=== PATIENT | female | born 1985 | race Caucasian/White ===

== ENCOUNTER 2017-11-30 02:23 | Emergency (ER) | payer OTHER, MEDICAID ==
[~2017-11-30] VITALS: Ht 170.2 cm; Wt 81.8 kg
[~2017-11-30 02:23] MED LIST: AMOXICILLIN 50500 MG PO; AMOXICILLIN 8751 TAB PO; CEPHALEXIN500 M1 PO; CLEOCIN HCL300 MG PO; CLINDAMYCIN150 MG PO; EQUALINE PRENATAL; FLEXERIL 1010 MG/TAB PO; FLEXERIL5 MG PO; IBU800 M1 PO; MACROBID 1100 MG/CAP PO; MOTRIN 800800 MG/TAB PO; NAPROSYN500 MG PO; NORCO 325 MG-51 TAB; NORCO 325 MG-51 TAB PO; NORCO 325 MG-7.1 TAB PO; PEN-VEE K500 MG PO; PERCOCET 325 MG1 TA2 PO; PHENERGAN 25 TA25 MG PO; PRENATAL1 TA7 PO; ULTRAM 50MG TAB50 MG PO; ZANTAC 7575 MG PO
[2017-11-30 02:33] VITALS: BP 162/107; TEMP 98.1
[2017-11-30 04:10] VITALS: PULSE 61
== END 2017-11-30 04:08 | disposition home or self-care (01) ==
LOC: COL.ER 02:23
DX: S90.111A Contusion of right great toe without damage to nail, initial encounter (principal); Z90.49 Acquired absence of other specified parts of digestive tract; Z98.890 Other specified postprocedural states; Z87.891 Personal history of nicotine dependence; W20.8XXA Other cause of strike by thrown, projected or falling object, initial encounter; Y92.009 Unspecified place in unspecified non-institutional (private) residence as the place of occurrence of the external cause

== ENCOUNTER 2017-12-20 23:41 | Emergency (ER) | payer OTHER, MEDICAID ==
[~2017-12-20] VITALS: Ht 170.2 cm; Wt 81.8 kg
[2017-12-20 23:48] VITALS: BP 163/99; TEMP 98
[2017-12-21] MEDS ORDERED: FLEXERIL 1010 MG/TAB PO (00:53)
[2017-12-21 01:08] VITALS: PULSE 70
== END 2017-12-21 01:08 | disposition home or self-care (01) ==
LOC: COL.ER 23:41
DX: S50.02XA Contusion of left elbow, initial encounter (principal); S46.912A Strain of unspecified muscle, fascia and tendon at shoulder and upper arm level, left arm, initial encounter; Z87.891 Personal history of nicotine dependence; W10.9XXA Fall (on) (from) unspecified stairs and steps, initial encounter; Y92.009 Unspecified place in unspecified non-institutional (private) residence as the place of occurrence of the external cause

== ENCOUNTER 2017-12-30 21:41 | Emergency (ER) | payer OTHER, MEDICAID ==
[~2017-12-30] VITALS: Ht 170.2 cm; Wt 81.8 kg
[2017-12-30 21:48] VITALS: BP 137/95; TEMP 98.6
[2017-12-30] MEDS ORDERED: NORCO 325 MG-51 TAB PO (23:25)
[2017-12-30 23:30] VITALS: PULSE 84
== END 2017-12-30 23:30 | disposition home or self-care (01) ==
LOC: COL.ER 21:41
DX: S29.012A Strain of muscle and tendon of back wall of thorax, initial encounter (principal); Z90.49 Acquired absence of other specified parts of digestive tract; Z87.891 Personal history of nicotine dependence; Z98.890 Other specified postprocedural states; W10.9XXA Fall (on) (from) unspecified stairs and steps, initial encounter

== ENCOUNTER 2018-03-29 18:37 | Emergency (ER) | payer OTHER, MEDICAID ==
[~2018-03-29] VITALS: Ht 170.2 cm; Wt 68.2 kg
[~2018-03-29 18:37] MED LIST changes: +PREDNISONE20 MG PO
[2018-03-29 18:45] VITALS: BP 148/96; PULSE 85; TEMP 98.2
== END 2018-03-29 19:52 | disposition home or self-care (01) ==
LOC: COL.ER 18:37
DX: M75.22 Bicipital tendinitis, left shoulder (principal)
CPT/HCPCS: J1885

== ENCOUNTER 2018-08-24 23:39 | Emergency (ER) | payer OTHER, MEDICAID ==
[~2018-08-24] VITALS: Ht 170.2 cm; Wt 84.1 kg
[2018-08-24 23:45] VITALS: BP 152/102; TEMP 98.3
[2018-08-25 01:06] VITALS: PULSE 76
== END 2018-08-25 01:06 | disposition home or self-care (01) ==
LOC: COL.ER 23:39
DX: S00.83XA Contusion of other part of head, initial encounter (principal); Z87.891 Personal history of nicotine dependence; W51.XXXA Accidental striking against or bumped into by another person, initial encounter

== ENCOUNTER 2018-09-22 21:28 | Emergency (ER) | payer OTHER ==
[~2018-09-22] VITALS: Ht 170.2 cm; Wt 84.1 kg
[2018-09-22 21:41] VITALS: BP 165/105; PULSE 93; TEMP 98.4
== END 2018-09-22 22:34 | disposition left against medical advice (07) ==
LOC: COL.ER 21:28
DX: J02.9 Acute pharyngitis, unspecified (principal)

== ENCOUNTER 2018-09-24 21:51 | Emergency (ER) | payer OTHER ==
[~2018-09-24] VITALS: Ht 170.2 cm; Wt 83.6 kg
[2018-09-24 21:55] VITALS: TEMP 98.1
[2018-09-24] MEDS ORDERED: AMOXICILLIN875 MG PO (21:59)
[2018-09-24 22:22] LABS: STREP SCREEN NEGATIVE
[2018-09-24 22:50] VITALS: BP 137/103; PULSE 76
== END 2018-09-24 22:50 | disposition home or self-care (01) ==
LOC: COL.ER 21:51
PROVIDERS: Physician Assistant
DX: J02.9 Acute pharyngitis, unspecified (principal)
CPT/HCPCS: J1100

== ENCOUNTER 2020-09-12 14:07 | Emergency (ER) | payer OTHER ==
[~2020-09-12] VITALS: Ht 170.2 cm; Wt 72.7 kg
[~2020-09-12 14:07] MED LIST changes: +AMOXICILLIN875 MG PO
[2020-09-12 14:15] VITALS: TEMP 98.5
[2020-09-12] MEDS ORDERED: FLEXERIL5 MG PO (15:20)
[2020-09-12 15:30] VITALS: BP 162/118; PULSE 69
== END 2020-09-12 15:25 | disposition home or self-care (01) ==
LOC: COL.ER 14:07
DX: M54.6 Pain in thoracic spine (principal); Z87.891 Personal history of nicotine dependence; Z88.5 Allergy status to narcotic agent
CPT/HCPCS: J1885

== ENCOUNTER 2021-02-12 17:41 | Emergency (ER) | payer OTHER ==
[~2021-02-12] VITALS: Ht 170.2 cm; Wt 75.5 kg
[2021-02-12] MEDS ORDERED: TESSALON PERLE200 MG PO (20:56)
[2021-02-12 21:12] VITALS: BP 155/93; PULSE 91; TEMP 98.4
== END 2021-02-12 21:12 | disposition home or self-care (01) ==
LOC: COL.ER 17:41
DX: B34.9 Viral infection, unspecified (principal); Z20.822 Contact with and (suspected) exposure to COVID-19

== ENCOUNTER 2021-11-29 20:10 | Emergency (ER) | payer OTHER ==
[~2021-11-29] VITALS: Ht 170.2 cm; Wt 71.2 kg
[~2021-11-29 20:10] MED LIST changes: +TESSALON PERLE200 MG PO
[2021-11-29 21:32] LABS: COLLECTION METHOD CLEAN CATCH
[2021-11-29 21:41] LABS: PH 6 (5-8); SQUAMOUS EPITHELIAL 0-2 /hpf (0-10); URINE APPEARANCE Clear (CLEAR/HAZY); URINE BACTERIA Rare /hpf (NONE SEEN); URINE BLOOD Negative (NEGATIVE); URINE COLOR Straw (YELLOW); URINE GLUCOSE Negative (NEGATIVE); URINE KETONE Negative (NEGATIVE); URINE NITRATE Negative (NEGATIVE); URINE PROTEIN(semi-quant) Negative (NEGATIVE); URINE RBC 0-2 /hpf (0-2); URINE UROBILINOGEN Negative (NEGATIVE)
[2021-11-29] MEDS ORDERED: NORCO 325 MG-51 TAB PO (22:38)
[2021-11-29 22:50] VITALS: BP 132/95; PULSE 74; TEMP 98.9
== END 2021-11-29 22:56 | disposition home or self-care (01) ==
LOC: COL.ER 20:10
PROVIDERS: Physician Assistant
DX: R51.9 Headache, unspecified (principal); Z28.310 Unvaccinated for COVID-19

== ENCOUNTER 2021-12-01 06:52 | Emergency (ER) | payer OTHER ==
[~2021-12-01] VITALS: Ht 170.2 cm; Wt 71.2 kg
[2021-12-01 07:04] VITALS: TEMP 97.6
[2021-12-01 08:21] LABS: BASO # 0.1 K/mm3 (0.0-0.2); BASO % 0.6 % (0.0-2.0); EOS # 0.1 K/mm3 (0.0-0.7); EOS % 0.6 % (0.0-4.0); GRAN # 4.8 K/mm3 (1.4-6.5); HEMOGLOBIN 12.7 g/dl (12.5-16.0); LYMPH # 2.6 K/mm3 (1.2-3.4); LYMPH % 32.6 % (20.0-51.0); MEAN CELL VOLUME 86 fl (80.0-100.0); MEAN CORPUSCULAR HEMOGLOBIN 30 pg (27-31); MEAN CORPUSCULAR HGB CONC 35 g/dl (33.0-37.0); MEAN PLATELET VOLUME 9.9 fl (7.4-10.4); MONO # 0.4 K/mm3 (0.1-0.6); MONO % 4.9 % (1.7-9.3); PLATELET COUNT 368 K/mm3 (130-400); RED BLOOD COUNT 4.29 M/mm3 (4.10-5.30); REDCELL DISTRIBUTION WIDTH-CV 12.9 % (11.5-14.5)
[2021-12-01 08:31] LABS: HEMATOCRIT 36.8 % (37.0-47.0)
[2021-12-01 08:36] LABS: ALANINE AMINOTRANSFERASE 9 U/L (0-55); ALBUMIN 4.6 gm/dL (3.5-5.0); ALKALINE PHOSPHATASE 62 U/L (40-150); ANION GAP 13 mmol/L (7-16); AST,SGOT 9 U/L (5-34); BILIRUBIN,TOTAL 0.5 mg/dL (0.2-1.2); BLOOD UREA NITROGEN 8 mg/dL (7-19); CALCIUM 9.9 mg/dL (8.4-10.2); CARBON DIOXIDE 22 mmol/L (22-29); CHLORIDE 107 mmol/L (98-107); CREATININE, serum 0.72 mg/dL (0.57-1.11); GLUCOSE 109 mg/dL (70-99); LIPASE 27 U/L (8-78); POTASSIUM 3.2 mmol/L (3.5-4.5); SODIUM 142 mmol/L (136-145); TOTAL PROTEIN 7.8 gm/dL (6.2-8.1)
[2021-12-01 08:44] LABS: TROPONIN-I < 0.010 ng/mL (0.00-0.033)
[2021-12-01 10:22] VITALS: BP 140/92; PULSE 63
[2021-12-01] MEDS ORDERED: ATIVAN 1MG T1 MG/TAB PO (10:33)
== END 2021-12-01 10:53 | disposition home or self-care (01) ==
LOC: COL.ER 06:52
PROVIDERS: Personal Emergency Response Attendant
DX: I10 Essential (primary) hypertension (principal); F41.9 Anxiety disorder, unspecified; F17.290 Nicotine dependence, other tobacco product, uncomplicated; Z20.822 Contact with and (suspected) exposure to COVID-19

== ENCOUNTER 2024-01-17 16:25 | Emergency (ER) | payer OTHER ==
[~2024-01-17] VITALS: Ht 170.2 cm; Wt 61.4 kg
[~2024-01-17 16:25] MED LIST changes: +ATIVAN 1MG T1 MG/TAB PO
[2024-01-17 16:44] VITALS: TEMP 98
[2024-01-17] MEDS ORDERED: Acetaminophen 500 MG TAB PO ONE (19:15)
[2024-01-17] MEDS ORDERED: Ibuprofen 400 MG TAB PO ONE (19:15)
[2024-01-17 20:05] VITALS: BP 145/94; PULSE 75
== END 2024-01-17 20:05 | disposition home or self-care (01) ==
LOC: COL.ER 16:25
DX: S92.001A Unspecified fracture of right calcaneus, initial encounter for closed fracture (principal); W20.8XXA Other cause of strike by thrown, projected or falling object, initial encounter; Z87.891 Personal history of nicotine dependence
CPT/HCPCS: L4386